=== PATIENT | male | born 1970 ===

== ENCOUNTER 2017-04-26 09:47 | Emergency (ER) | payer OTHER ==
[2017-04-26] MEDS ORDERED: Ibuprofen TAB* 400 MG PO ONE (10:32)
[2017-04-26] MEDS ORDERED: Cyclobenzaprine TAB* 10 MG PO ONE (10:32)
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
== END 2017-04-26 11:35 | disposition home or self-care (01) ==
LOC: UCEAST 09:47
DX: S29.012A Strain of muscle and tendon of back wall of thorax, initial encounter (principal); S39.012A Strain of muscle, fascia and tendon of lower back, initial encounter; V43.52XA Car driver injured in collision with other type car in traffic accident, initial encounter; Y93.89 Activity, other specified; Y92.410 Unspecified street and highway as the place of occurrence of the external cause; Z72.0 Tobacco use
CPT/HCPCS: 72110; 99202; A9270-GY; G0463

== ENCOUNTER 2017-05-14 10:45 | Emergency (ER) | payer OTHER ==
[2017-05-14] MEDS ORDERED: Ibuprofen TAB* 400 MG PO ONE (13:00)
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
== END 2017-05-14 14:05 | disposition home or self-care (01) ==
LOC: UCEAST 10:45
DX: M54.5 Low back pain (principal); M62.830 Muscle spasm of back; R03.0 Elevated blood-pressure reading, without diagnosis of hypertension; Z87.891 Personal history of nicotine dependence
CPT/HCPCS: 72131; 99212; A9270-GY; G0463